=== PATIENT | female | born 1955 | race Caucasian/White ===

== ENCOUNTER 2023-06-17 06:08 | Inpatient (IN) | payer MEDICARE, OTHER ==
[2023-06-17] MEDS ORDERED: Lidocaine 1% MPF 2 ML VIAL ONE (06:30)
[2023-06-17] MEDS ORDERED: fentaNYL 50 mcg/mL 1 mL Vial ONE ×2 (06:51→09:20)
[2023-06-17] MEDS ORDERED: EPINEPHrine 1 MG/10 ML Abboject SYRINGE ONE (06:53)
[2023-06-17] MEDS ORDERED: Heparin 5,000 UNITS/ML VIAL ONE (06:53)
[2023-06-17] MEDS ORDERED: Bupivacaine 0.25% HCL 30 ML VIAL ONE (06:53)
[2023-06-17] MEDS ORDERED: Protamine Sulfate 50 MG/5 ML VIAL ONE (06:53)
[2023-06-17] MEDS ORDERED: Midazolam HCl 2 mg/2 ml Vial ONE (07:14)
[2023-06-17 07:15] LABS: #Eosinphils 0.2 thou/uL (0.0-0.7); #Monocytes 0.4 thou/uL (0.11-0.59); #Neutrophils 2.8 thou/uL (1.40-6.50); %Basophils 0.5 % (0.0-1.0); %Eosinophils 2.5 % (0.0-10.0); %Lymphocytes 43.7 % (21.0-51.0); %Monocytes 6.5 % (0.0-10.0); %Neutrophils 46.5 % (42.0-75.0); Hematocrit 32.5 % (36.0-47.0); Hemoglobin 10.7 g/dL (12.0-16.0); Mean Corpuscular HGB CONC 32.9 g/dL (32.0-36.0); Mean Corpuscular Hemoglobin 29.8 pg (27.0-31.0); Mean Corpuscular Volume 90.5 fl (78.0-98.0); Mean Platelet Volume 9.7 fL (7.4-10.4); Platelet Count 230 10x3/uL (130-400); RBC Distribution Width 13.2 % (11.5-14.5); Red Blood Cell (RBC) Count 3.59 mill/uL (4.20-5.40)
[2023-06-17] MEDS ORDERED: CEFAZOLIN 2 GM VIAL ONE (07:25)
[2023-06-17] MEDS ORDERED: Sodium Chloride 0.9% 100 ML ONE (07:25)
[2023-06-17 07:34] LABS: Anion Gap 12 mmol/L (10-20); BUN (Urea Nitrogen) 26 mg/dL (9.8-20.1); Calc. Creatinine Clearance 70 mL/min (70-130); Calcium 9.3 mg/dL (7.8-10.44); Carbon Dioxide 23 mmol/L (23-31); Chloride 107 mmol/L (98-107); Estimated GFR 52; Glucose 111 mg/dL (80-115); Potassium 3.9 mmol/L (3.5-5.1); Sodium 138 mmol/L (136-145)
[2023-06-17] MEDS ORDERED: PROPOFOL 200 MG/20 ML VIAL ONE (07:48)
[2023-06-17] MEDS ORDERED: Lidocaine 1% PF 5 ML VIAL ONE (07:48)
[2023-06-17] MEDS ORDERED: Ondansetron PF 4 MG/2 ML Vial ONE (07:48)
[2023-06-17] MEDS ORDERED: Rocuronium Bromide 10 MG/ML (10ML VIAL) ONE (07:48)
[2023-06-17] MEDS ORDERED: Dexamethasone 20 MG/5 ML VIAL ONE (07:48)
[2023-06-17] MEDS ORDERED: Glycopyrrolate 0.2 MG/ML 5 ML SYRINGE ONE (07:48)
[2023-06-17] MEDS ORDERED: NEOSTIGMINE 3 MG/3 ML SYR 3 MG/3 ML SYRINGE ONE (07:48)
[2023-06-17] MEDS ORDERED: Phenylephrine 40 MG in Sodium Chloride 0.9% 250 ML 250 ML IVPB PRN (09:41)
[2023-06-17] MEDS ORDERED: Morphine 4 MG/ML VIAL SLOW IVP PRN (09:41)
[2023-06-17] MEDS ORDERED: Ondansetron PF 4 MG/2 ML Vial IVP PRN (09:41)
[2023-06-17] MEDS ORDERED: Promethazine HCl 25 MG/ML VIAL IM PRN (09:41)
[2023-06-17] MEDS ORDERED: niCARdipine 25 MG in Sodium Chloride 0.9% 250 ML 240 ML IVPB PRN (09:41)
[2023-06-17] MEDS ORDERED: Ipratropium/Albuterol 3 ML NEB NEB PRN (09:41)
[2023-06-17] MEDS ORDERED: Sodium Chloride 0.9% 1,000 ML IV SCH (09:41)
[2023-06-17] MEDS ORDERED: Acetaminophen 325 MG TAB PO PRN (09:41)
[2023-06-17] MEDS ORDERED: niCARdipine 25 MG in Sodium Chloride 0.9% 250 ML 250 ML IVPB PRN (10:00)
[2023-06-17 10:49] VITALS: BMI 38.5
[2023-06-17] MEDS: traMADol HCl 50 MG TAB PO PRN ×2 (15:08→21:51)
[2023-06-17] MEDS: CEFAZOLIN 2 GM in Sodium Chloride 0.9% 100 ML IVPB SCH ×2 (15:09→23:53)
[2023-06-17] MEDS ORDERED: Losartan 25 MG TAB PO SCH (21:00)
[2023-06-17] MEDS: Carvedilol 25 MG TAB PO SCH (21:46)
[2023-06-18] MEDS: traMADol HCl 50 MG TAB PO PRN (07:18)
[2023-06-18 07:25] VITALS: TEMP 98.5
[2023-06-18] MEDS: CEFAZOLIN 2 GM in Sodium Chloride 0.9% 100 ML IVPB SCH (08:18)
[2023-06-18] MEDS: Carvedilol 25 MG TAB PO SCH (08:20)
[2023-06-18] MEDS ORDERED: Aspirin Chewable 81 MG TAB PO SCH (09:00)
[2023-06-18] MEDS ORDERED: Clopidogrel Bisulfate 75 MG TAB PO SCH (09:00)
[2023-06-18] MEDS ORDERED: Magnesium Oxide 400 MG TAB PO SCH (09:00)
== END 2023-06-18 11:38 | disposition home or self-care (01) | DRG 39 ==
LOC: SURG A 06:08 → CCU 10:30
PROVIDERS: ADMIT Thoracic Surgery (Cardiothoracic Vascular Surgery); ATTEND Thoracic Surgery (Cardiothoracic Vascular Surgery)
PROC: 03CL0ZZ Extirpation of Matter from Left Internal Carotid Artery, Open Approach (ICD-10-PCS; principal; 2023-06-17)
PROC: 03UL0KZ Supplement Left Internal Carotid Artery with Nonautologous Tissue Substitute, Open Approach (ICD-10-PCS; 2023-06-17)
PROC: 3E033XZ Introduction of Vasopressor into Peripheral Vein, Percutaneous Approach (ICD-10-PCS; 2023-06-17)
DX: I65.23 Occlusion and stenosis of bilateral carotid arteries (principal); E78.00 Pure hypercholesterolemia, unspecified; I25.10 Atherosclerotic heart disease of native coronary artery without angina pectoris; I10 Essential (primary) hypertension; E78.2 Mixed hyperlipidemia; Z90.89 Acquired absence of other organs; Z90.49 Acquired absence of other specified parts of digestive tract; Z95.1 Presence of aortocoronary bypass graft; Z98.49 Cataract extraction status, unspecified eye; Z82.49 Family history of ischemic heart disease and other diseases of the circulatory system
CPT/HCPCS: 80048; 85025; 86850; 86900; 86901; C1768; J0171; J1100; J1642; J1644; J2250; J2270; J2405; J2704; J2720; J3010; J3490; S0020

== ENCOUNTER 2023-11-11 05:57 | Inpatient (IN) | payer MEDICARE, OTHER ==
[2023-11-11 06:36] LABS: Hematocrit 34.6 % (36.0-47.0); Hemoglobin 11.5 g/dL (12.0-16.0); Mean Corpuscular HGB CONC 33.2 g/dL (32.0-36.0); Mean Corpuscular Hemoglobin 30.1 pg (27.0-31.0); Mean Corpuscular Volume 90.6 fl (78.0-98.0); Mean Platelet Volume 10.2 fL (7.4-10.4); Platelet Count 192 10x3/uL (130-400); RBC Distribution Width 13.2 % (11.5-14.5); Red Blood Cell (RBC) Count 3.82 mill/uL (4.20-5.40); White Blood Cell (WBC) Count 6.2 10x3/uL (4.8-10.8)
[2023-11-11] MEDS ORDERED: Heparin 5,000 UNITS/ML VIAL ONE (06:39)
[2023-11-11] MEDS ORDERED: Bupivacaine 0.25% HCL 30 ML VIAL ONE (06:39)
[2023-11-11] MEDS ORDERED: fentaNYL PF 100 MCG/2 ML SYRINGE ONE (06:49)
[2023-11-11] MEDS ORDERED: PROPOFOL 20 ML ONE (06:49)
[2023-11-11] MEDS ORDERED: Midazolam HCl 2 mg/2 ml Vial ONE (06:50)
[2023-11-11] MEDS ORDERED: Lidocaine 1% PF 5 ML VIAL ONE (06:51)
[2023-11-11] MEDS ORDERED: Rocuronium Bromide 10 MG/ML (10ML VIAL) ONE (06:51)
[2023-11-11 06:57] LABS: Anion Gap 13 mmol/L (10-20); BUN (Urea Nitrogen) 27 mg/dL (9.8-20.1); Calc. Creatinine Clearance 76 mL/min (70-130); Calcium 9.3 mg/dL (7.8-10.44); Carbon Dioxide 24 mmol/L (23-31); Chloride 108 mmol/L (98-107); Estimated GFR 60; Glucose 103 mg/dL (80-115); Potassium 4.4 mmol/L (3.5-5.1); Sodium 141 mmol/L (136-145)
[2023-11-11] MEDS ORDERED: Sodium Chloride 0.9% 100 ML ONE (07:30)
[2023-11-11] MEDS ORDERED: CEFAZOLIN 2 GM VIAL ONE (07:30)
[2023-11-11] MEDS ORDERED: Nitroglycerin 50 MG/250 ML BOT 0 ML ONE (07:38)
[2023-11-11] MEDS ORDERED: Heparin 10,000 UNITS/ 10 ML VIAL ONE (08:19)
[2023-11-11] MEDS ORDERED: Phenylephrine 40 MG/NS 250 ML 250 ML ONE (08:19)
[2023-11-11] MEDS ORDERED: ePHEDrine Sulfate 50 MG/10 ML VIAL ONE (08:28)
[2023-11-11] MEDS ORDERED: HYDROmorphone 2 MG/ML VIAL SLOW IVP PRN (08:49)
[2023-11-11] MEDS ORDERED: Ondansetron HCl/PF 4 MG/2 ML Vial IVP PRN (08:49)
[2023-11-11] MEDS ORDERED: Promethazine HCl 25 MG/ML VIAL IM PRN ×2 (08:49→09:25)
[2023-11-11] MEDS ORDERED: Ondansetron PF 4 MG/2 ML Vial ONE (09:01)
[2023-11-11] MEDS ORDERED: Dexamethasone 4 mg/ml Vial ONE (09:01)
[2023-11-11] MEDS ORDERED: SUGAMMADEX SODIUM 200 MG/2 ML VIAL ONE ×2 (09:02→09:24)
[2023-11-11] MEDS ORDERED: Ipratropium/Albuterol 3 ML NEB NEB PRN (09:25)
[2023-11-11] MEDS ORDERED: fentaNYL 50 mcg/mL 1 mL Vial SLOW IVP PRN (09:25)
[2023-11-11] MEDS ORDERED: DOPamine 400 MG/D5W 250 ML 250 ML IVPB PRN (09:25)
[2023-11-11] MEDS ORDERED: Sodium Chloride 0.9% 1,000 ML IV SCH (09:25)
[2023-11-11] MEDS ORDERED: Ondansetron PF 4 MG/2 ML Vial IVP PRN (09:25)
[2023-11-11] MEDS ORDERED: fentaNYL 50 mcg/mL 1 mL Vial ONE (09:58)
[2023-11-11 11:26] VITALS: BMI 39.1
[2023-11-11] MEDS: traMADol HCl 50 MG TAB PO PRN ×2 (13:30→21:05)
[2023-11-11] MEDS: CEFAZOLIN 2 GM in Sodium Chloride 0.9% 100 ML IVPB SCH ×2 (14:55→22:17)
[2023-11-11] MEDS: Acetaminophen 325 MG TAB PO PRN (16:45)
[2023-11-11] MEDS ORDERED: Carvedilol 6.25 MG TAB PO SCH ×2 (16:45→21:00)
[2023-11-11] MEDS ORDERED: Losartan 25 MG TAB PO SCH ×2 (16:45→21:00)
[2023-11-11 16:50] VITALS: BP 163/60
[2023-11-12] MEDS: traMADol HCl 50 MG TAB PO PRN ×2 (04:06→10:25)
[2023-11-12] MEDS: CEFAZOLIN 2 GM in Sodium Chloride 0.9% 100 ML IVPB SCH (07:30)
[2023-11-12] MEDS: Acetaminophen 325 MG TAB PO PRN (08:05)
[2023-11-12 08:18] VITALS: TEMP 98.5
[2023-11-12] MEDS ORDERED: Carvedilol 6.25 MG TAB PO SCH (09:00)
[2023-11-12] MEDS ORDERED: Aspirin Chewable 81 MG TAB PO SCH (09:00)
[2023-11-12] MEDS ORDERED: FLU VACC QS2023(65UP)/MF59C/PF 60 MCG/0.5 ML SYRINGE IM ONE (09:00)
[2023-11-12] MEDS ORDERED: Losartan 25 MG TAB PO SCH (21:00)
== END 2023-11-12 11:30 | disposition home or self-care (01) | DRG 39 ==
LOC: SURG A 05:57 → CCU 11:01
PROVIDERS: ADMIT Thoracic Surgery (Cardiothoracic Vascular Surgery); ATTEND Thoracic Surgery (Cardiothoracic Vascular Surgery)
PROC: 03CK0ZZ Extirpation of Matter from Right Internal Carotid Artery, Open Approach (ICD-10-PCS; principal; 2023-11-11)
PROC: 03UK0KZ Supplement Right Internal Carotid Artery with Nonautologous Tissue Substitute, Open Approach (ICD-10-PCS; 2023-11-11)
DX: I65.21 Occlusion and stenosis of right carotid artery (principal); Z79.899 Other long term (current) drug therapy; Z88.8 Allergy status to other drugs, medicaments and biological substances
CPT/HCPCS: 80048; 85027; C1768; J1100; J1644; J2250; J2405; J2704; J3010; J3490; J7050; S0020

== ENCOUNTER 2025-08-28 10:41 | Outpatient (CLI) | payer MEDICARE, OTHER | END 2025-08-28 10:42 | disposition home or self-care (01) | LOC: SCSMRI 10:41 | PROVIDERS: ATTEND Nurse Practitioner Family | DX: M54.16 Radiculopathy, lumbar region (principal); M48.061 Spinal stenosis, lumbar region without neurogenic claudication; M48.07 Spinal stenosis, lumbosacral region | CPT/HCPCS: 72148 ==